=== PATIENT | male | born 1960 | race Caucasian/White ===

== ENCOUNTER → 2017-11-27 | Outpatient (CLI) | payer OTHER ==
[~2017-11-27] MED LIST: ATOR-22 PO; CLTP PO; FISHOIL PO
--- NOTE | 2017-11-27 13:49 | DIAGNOSTIC IMAGING REPORT ---
R INJ MAJOR JOANNAT SHLDR,HIP,KNEE CLINICAL HISTORY: 57 years-old Male presenting with DJD R HIP. COMPARISON: None. PROCEDURE: The risks, benefits, and alternatives to the procedure were discussed with the patient. Written informed consent was obtained. The patient was placed supine on the fluoroscopy table, and a right hip injection was performed under fluoroscopic guidance. The area was prepped and draped in the usual sterile fashion. The skin and soft tissues anesthetized with local 1% lidocaine. The right hip joint was accessed utilizing a 22-gauge needle. Approximately 1 mL of Optiray 300 was injected into the joint space under fluoroscopic guidance to confirm intra-articular positioning. Subsequently, a 10 mL mixture containing 8 mL of 0.5% Bupivacaine and 2 mL of betamethasone was injected into the joint. The procedure was well tolerated without immediate complication. Fluoroscopy dosage (mGy): Not available. Fluoroscopy time: 20 seconds. Number of fluoroscopic spot images: 0. IMPRESSION: Successful injection of the right hip under fluoroscopic guidance. Electronically signed by: Juan Ramon Ga M.D. 11/27/2017 1:48 PM Dictated Date/Time: 11/27/2017 1:48 PM
== END | disposition home or self-care (01) ==
LOC: C.RADBC 12:30
PROVIDERS: ATTEND Orthopaedic Surgery
DX: M16.11 Unilateral primary osteoarthritis, right hip (principal)

== ENCOUNTER 2020-04-24 05:06 | Observation (INO) ==
--- NOTE | 2020-04-05 21:28 | PAT Medication Instructions ---
Medication Instructions Date of Service April 05, 2020 Home Medications Medication Instructions Recorded 3-in-1 Commode #1 ea 04/05/20 Wheeled Walker #1 ea 04/05/20 losartan 50 mg PO QAM warfarin 5 mg PO QAM ASK your prescriber and surgeon warfarin 5 mg PO QAM DO NOT take the morning of surgery losartan 50 mg PO QAM Other Notes If you have any questions please call us at [phone] or [phone] or [phone] or [phone]
--- NOTE | 2020-04-06 10:49 | Anesthesiology Consultation ---
Date of Service April 06, 2020 Assessment & Plan (1) Encounter for pre-operative examination: COVID Status: As of 04/06 assessment, patient denies travel to endemic area, known exposure/sick contacts, or symptoms of COVID19. Patient instructed to follow strict social distancing guidelines, wear a mask in public and avoid travel for 14 days prior to surgery. Preoperative COVID19 testing to be completed prior to surgery. Patient made aware to self-isolate as much as possible between COVID testing and surgery. Chart Review Chart Review: Acceptable Risk for Surgery and Patient seen in Pre Admission Testing Teaching & Discussion Instructed NPO after midnight before surgery, except medications with 15 cc of water. Medication instructions provided according to the PAT guidelines. History Surgery Operation Date: 04/24/20 12:30 Proposed Procedures p Right Total Hip Replacement - Saeed Hogan MD Height/Weight Height: 5 ft 6 in Weight: 119.9 kg Allergies Allergy/AdvReac Type Severity Reaction Status Date / Time codeine Allergy Mild itchy/RASH Verified 04/03/20 14:10 Medications Home Medications Medication Instructions Recorded Confirmed Last Taken losartan 50 mg PO QAM 04/03/20 04/03/20 Unknown warfarin 5 mg PO QAM 04/03/20 04/03/20 Unknown 3-in-1 Commode #1 ea 04/05/20 Unknown Wheeled Walker #1 ea 04/05/20 Unknown Past Medical History Medical History History of prostate cancer Hypertension Morbid obesity Osteoarthritis Thrombophlebitis leg Chronic, on Warfarin. B/L LE. Exercise / Class Metabolic Activity II 4-5 Yardwork/Stairs/Walk up hill (denies CP or SOB with 1 FOS) Past Family History Family History Other No significant family history Past Surgical History Surgical History History of arthroscopy LEFT SHOULDER History of carpal tunnel release RT History of colonoscopy History of discectomy LUMBAR History of prostatectomy History of tooth extraction History of total knee replacement RT/LEFT Hx of vasectomy Nausea and vomiting after administration of anesthetic agent Past Anesthesia History No Hx of Anesthesia Complications (other than PONV) and No Family Hx of Anesthesia Complications POSSIBLE DIFFICULT SPINAL -- PATIENT REPORTS THEY HAD DIFFICULTY DOING A SPINAL TAP WHEN HE HAD MENINGITIS IN 2013. History of PONV No Hx of Motion Sickness and History of PONV (single episode with shoulder scope) Social History Smoking Status: Never smoker Do You Dip or Chew Tobacco: No Hx Alcohol Use: No Hx Substance Use: No Review of Systems Pt denies any recent chest pain, shortness of breath, palpitations, cough, fever or URI. Physical Exam Vital Signs BP: 153/94 P: 73bpm SPO2: 97% RA T: 98.5 F R: 18 Constitutional + obese ENMT Mouth: + dental restorations (front upper incisor capped); no chipped teeth and no loose teeth Thyromental Distance: > or= 3.5 Finger Breadths (3.5) Mallampati Class: I Missing 2 upper incisors Neck + short neck and + facial hair (medium length flores, advised to trim); neck extension not limited Respiratory normal respiratory effort Auscultation: lungs clear to auscultation bilaterally Cardiovascular Rate/Rhythm: regular rate and regular rhythm Heart Sounds: no murmur Extremities: no edema Testing Laboratory Results 04/06/20 11:02 04/06/20 11:02 PT 31.4 Seconds (9.0-12.0) H 04/06/20 11:02 INR 3.2 (0.9-1.1) H 04/06/20 11:02 APTT 42.5 Seconds (21.0-31.0) H 04/06/20 11:02 Blood Type AB Positive 04/06/20 11:02 Antibody Screen NEGATIVE 04/06/20 11:02 Electrocardiogram Date: 04/06/20 Findings: + NSR @ (66bpm) Chest X-Ray Date: 04/06/20 Findings: + NAD
--- NOTE | 2020-04-06 11:34 | XRay Report ---
XR chest Pre-admission PA/Lat CLINICAL HISTORY: pat preoperative COMPARISON STUDY: No previous studies for comparison. FINDINGS: The bones soft tissues and hemidiaphragms are normal. The cardiomediastinal silhouette is n ormal. The lungs are clear. The pulmonary vasculature is normal. IMPRESSION: Negative chest. ACT 112: Negative or not required by law. The above report was generated using voice recognition software. It may contain grammatical, syntax or spelling errors. Electronically signed by: oRb Tapia M.D. 04/06/2020 11:32 AM
[2020-04-06 12:22] LABS: Basophils # (auto) 0.02 K/uL (0-0.2); Basophils % (auto) 0.3 %; Eosinophils # (auto) 0.05 K/uL (0-0.5); Eosinophils % (auto) 0.8 %; Hematocrit (blood only) 46.1 % (42-52); Hemoglobin 15.6 g/dL (14.0-18.0); Immature Granulocytes # (auto) 0.03 K/uL (0.00-0.02); Immature Granulocytes % (auto) 0.5 %; Lymphocytes % (auto) 24.2 %; Mean Corpuscular Hemoglobin 29.2 pg (25-34); Mean Corpuscular Hgb Conc 33.8 g/dL (32-36); Mean Corpuscular Volume 86.2 fL (80-100); Mean Platelet Volume 10.3 fL (7.4-10.4); Monocytes # (auto) 0.43 K/uL (0.11-0.59); Monocytes % (auto) 6.5 %; Neutrophils # (auto) 4.48 K/uL (1.4-6.5); Neutrophils % (auto) 67.7 %; Platelet Count 209 K/uL (130-400); RDW Standard Deviation 43.7 fL (36.4-46.3); Red Blood Count 5.35 M/uL (4.7-6.1); White Blood Count 6.61 K/uL (4.8-10.8)
[2020-04-06 12:29] LABS: BUN Creatinine Ratio 9.7 (10-20); Calcium 9.3 mg/dl (8.5-10.1); Creatinine Clr Calc Pharmacy 109.2 ml/min; Est GFR (Non-African American) 93.2
[2020-04-06 12:37] LABS: INR 3.2 (0.9-1.1); Partial Thromboplastin Ratio 1.5; Partial Thromboplastin Time 42.5 Seconds (21.0-31.0); Prothrombin Time 31.4 Seconds (9.0-12.0)
--- NOTE | 2020-04-06 15:53 | Electrocardiogram Report ---
Test Reason : Blood Pressure : / mmHG Vent. Rate : 066 BPM Atrial Rate : 066 BPM P-R Int : 152 ms QRS Dur : 088 ms QT Int : 414 ms P-R-T Axes : 064 044 042 degrees QTc Int : 434 ms Normal sinus rhythm Normal ECG When compared with ECG of 10-APR-2013 19:18, Minimal criteria for Inferior infarct are no longer Present Confirmed by Musa Rivas ([id number]) on 04/06/2020 3:52:51 PM Referred By: Saeed Hogan Confirmed By:Musa Rivas
[2020-04-24 05:52] LABS: Partial Thromboplastin Ratio 0.9; Prothrombin Time 10.3 Seconds (9.0-12.0)
[2020-04-24] MEDS ORDERED: LR 500ML BOLUS, THEN 15ML/HR IV SCH (06:00)
[2020-04-24] MEDS ORDERED: FAMOTIDINE 20 MG TAB PO SCH (06:00)
[2020-04-24] MEDS ORDERED: CEFAZOLIN 2000MG 2,000 MG/15 ML SYR IV SCH (06:00)
[2020-04-24] MEDS ORDERED: ACETAMINOPHEN 500 MG TAB PO SCH (06:00)
[2020-04-24] MEDS ORDERED: SCOPOLAMINE 1.5 MG TDSY TD SCH (06:00)
[2020-04-24] MEDS ORDERED: TRANEXAMIC ACID 1,000 MG **IV Pre-op IV SCH (06:00)
[2020-04-24] MEDS ORDERED: GABAPENTIN 300 MG CAP PO SCH (06:00)
[2020-04-24] MEDS ORDERED: LR 60ML/HR IV SCH (06:00)
[2020-04-24] MEDS ORDERED: METOCLOPRAMIDE HCL 10 MG TABLET PO SCH (06:00)
[2020-04-24] MEDS ORDERED: MIDAZOLAM HCL 1 MG/ML 2ML VIAL ONE (06:19)
[2020-04-24] MEDS ORDERED: fentaNYL citrate 100 MCG/2 ML VIAL ONE (06:19)
[2020-04-24] MEDS ORDERED: MoRPHine SULFATE PF 1 MG/ML 10 ML AMP/VIAL ONE (06:19)
[2020-04-24] MEDS ORDERED: BUPIVACAINE 0.5 % 5 MG/1 ML PF 10ML VIAL ONE (06:29)
[2020-04-24] MEDS ORDERED: BACITRACIN INJ 50,000 UNIT VIAL ONE (06:36)
[2020-04-24] MEDS ORDERED: EPINEPHrine INJ 1 MG/ML AMP ONE (06:36)
[2020-04-24] MEDS ORDERED: BUPIVACAINE 0.5 % 5 MG/1 ML MPF 30ML VIAL ONE (06:36)
[2020-04-24] MEDS ORDERED: MoRPHine SULFATE 2 MG/ML CARP IV PRN (06:48)
[2020-04-24] MEDS ORDERED: NALOXONE HCL 0.08 MG in SYRINGE 1.8 ML IV PRN (06:48)
[2020-04-24] MEDS ORDERED: NALOXONE HCL 1 MG in SODIUM CHLORIDE 0.9% 1000ML 1,000 ML IV PRN (06:48)
[2020-04-24] MEDS ORDERED: NALOXONE HCL 0.4 MG/1 ML VIAL/CARP IV PRN ×2 (06:48→10:03)
[2020-04-24] MEDS ORDERED: LACTATED RINGER'S 500 ML IV PRN (06:48)
[2020-04-24] MEDS ORDERED: MoRPHine SULFATE PF 1 MG/ML 10 ML AMP/VIAL INT SPINAL ONE (06:48)
[2020-04-24] MEDS ORDERED: ePHEDrine sulfate 50 MG/ML AMP IV PRN (06:48)
[2020-04-24] MEDS ORDERED: DiphenhydrAMINE HCL 50 MG/ML VIAL IV PRN (06:48)
[2020-04-24] MEDS ORDERED: MEPERIDINE HCL 25 MG/ML CARP/VIAL IV PRN (06:48)
[2020-04-24] MEDS ORDERED: ONDANSETRON INJ 2 MG/ML 2 ML VIAL IV PRN (06:48)
--- NOTE | 2020-04-24 06:48 | History & Physical Bridge Note ---
Date of Service April 24, 2020 History & Physical Bridge Note I have examined the patient, reviewed the History & Physical and in the interval since the performance of the History & Physical I have noted the following changes of clinical significance: no changes noted
[2020-04-24] MEDS ORDERED: SODIUM CHLORIDE 0.9% 1000ML 1,000 ML IV SCH (07:00)
[2020-04-24] MEDS ORDERED: NO NARCOTICS OR SEDATIVES SCH (07:00)
[2020-04-24] MEDS ORDERED: PROPOFOL IV EMULSION 10 MG/ML 20 ML VIAL IV ONE (07:06)
[2020-04-24] MEDS ORDERED: ePHEDrine sulfate 50 MG/ML SYR ONE (07:29)
[2020-04-24] MEDS ORDERED: PHENYLEPHRINE 100MCG/ML 5ML SYR ONE (07:29)
--- NOTE | 2020-04-24 08:34 | Post Operative Brief Note ---
PG Immediate Post Op with CF Date of Surgery April 24, 2020 Pre & Post Diagnosis Operation Date: 04/24/20 07:00 Pre-Op Diagnosis: RIGHT HIP DEGENERATIVE JOINT DISEASE Post-Op Diagnosis: RIGHT HIP DEGENERATIVE JOINT DISEASE I identified the patient and participated in the time-out.: Yes Procedure Operation Date: 04/24/20 07:00 Actual Procedures p Right Total Hip Replacement-uncemented(Right) - Saeed Hogan MD Surgeon Saeed Hogan MD Equipment Tester Nic, PAC Estimated Blood Loss 200 Findings Consistent with Post-Op Diagnosis Fluids 1400 cc Specimens Specimen Description: Permanent specimen: A. Right femoral head Drains Alicea Catheter Anesthesia Type Spinal MAC Complications none Disposition Accompanied Patient To Recovery: Yes Disposition: Recovery Room
--- NOTE | 2020-04-24 09:02 | XRay Report ---
XR hip 1V RT w pelvis CLINICAL HISTORY: Postoperative study COMPARISON: None. DISCUSSION: There are postsurgical changes of a total right hip arthroplasty. There is no dislocation . The acetabular and femoral components appear well seated. There are overlying skin mireille. There i s gas in the soft tissues consistent with recent surgery. Osteoarthritic changes are present within t he left hip. IMPRESSION: Postsurgical changes of a total right hip arthroplasty. No evidence of dislocation. ACT 112: Negative or not required by law. Electronically signed by: Kenyon Escamilla M.D. 04/24/2020 9:00 AM
--- NOTE | 2020-04-24 09:23 | Anesthesiology Progress Note ---
Date of Service April 24, 2020 Anesthesia Post Procedure Vital Signs Vital Signs: Temp Pulse Pulse Resp BP Pulse Ox 04/24/20 09:15 36.4 C L 91 H 14 168/83 H 96 04/24/20 09:05 90 12 153/80 H 97 04/24/20 08:55 88 13 147/80 H 96 04/24/20 08:45 88 16 143/77 H 97 04/24/20 08:35 89 15 144/75 H 99 04/24/20 08:28 36.4 C L 103 H 18 132/70 97 04/24/20 05:35 36.8 C 86 20 157/89 H 98 Transfer of Care Handoff Completed per policy Notes Mental Status: alert / awake / arousable and participated in evaluation Patient Amnestic to Procedure: Yes Nausea / Vomiting: adequately controlled Pain: adequately controlled Airway Patency, RR, SpO2: stable & adequate BP & HR: stable & adequate Hydration State: stable & adequate Neuraxial Anesthesia: was administered and sensory block is resolving Anesthetic Complications: no major complications apparent and Pt Satisfied with anesthetic care
[2020-04-24] MEDS ORDERED: bisacodyL 10 MG SUPP PR PRN (10:03)
[2020-04-24] MEDS ORDERED: ALUMINUM/MAGNESIUM SUSP 30 ML UDC PO PRN (10:03)
[2020-04-24] MEDS ORDERED: MAGNESIUM HYDROXIDE SUSP 30 ML UDC PO PRN (10:03)
[2020-04-24] MEDS ORDERED: METOCLOPRAMIDE HCL INJ 5 MG/ML 2 ML VIAL IV PRN (10:03)
[2020-04-24] MEDS ORDERED: TAMSULOSIN HCL 0.4 MG CAP PO PRN (10:03)
[2020-04-24] MEDS: SODIUM CHLORIDE 0.9% 1000ML 1,000 ML IV SCH ×3 (11:26→23:55)
[2020-04-24] MEDS: ASPIRIN 81 MG ECTAB PO SCH ×2 (12:33→21:14)
[2020-04-24] MEDS: KETOROLAC 30 MG/ML VIAL IV SCH ×3 (12:35→23:57)
[2020-04-24] MEDS: DOCUSATE SODIUM 100 MG CAP PO SCH ×2 (12:42→21:13)
[2020-04-24] MEDS: LOSARTAN POTASSIUM 50 MG TAB PO SCH (12:42)
[2020-04-24] MEDS: MULTIVITAMIN TAB PO SCH (12:43)
[2020-04-24] MEDS: ACETAMINOPHEN 500 MG TAB PO SCH ×2 (13:29→21:13)
[2020-04-24] MEDS: CEFAZOLIN 2000MG 2,000 MG/15 ML SYR IV SCH ×2 (13:30→21:14)
[2020-04-24] MEDS ORDERED: TRANEXAMIC ACID / 0.7% NACL 1,000 MG/100 ML BAG IV SCH (15:00)
[2020-04-24] MEDS: CHECK SCOPOLAMINE PATCH PLACEMENT SCH ×2 (15:18→23:55)
[2020-04-24] MEDS ORDERED: WARFARIN SOD 10 MG TAB PO ONE (16:00)
[2020-04-24] MEDS: FERROUS GLUCONATE 324 MG TAB PO SCH (17:04)
[2020-04-24] MEDS: ASCORBIC ACID 500 MG TAB PO SCH (17:04)
--- NOTE | 2020-04-24 17:36 | Operative Report ---
Post Operative Report Pre & Post Diagnosis Operation Date: 04/24/20 07:00 Pre-Op Diagnosis: RIGHT HIP DEGENERATIVE JOINT DISEASE Post-Op Diagnosis: RIGHT HIP DEGENERATIVE JOINT DISEASE I identified the patient and participated in the time-out.: Yes Procedure Operation Date: 04/24/20 07:00 Actual Procedures p Right Total Hip Replacement-uncemented(Right) - Saeed Hogan MD Surgeon Saeed Hogan MD Sustainability Communicator Nic, PAC Estimated Blood Loss 200 Findings Consistent with Post-Op Diagnosis Operative findings revealed advanced right hip DJD. Extensive grade 4 [id number] disease of the femoral head and acetabulum. He had a fairly large anterior acetabular osteophyte. Moderate sized joint effusion. Fluids 1400 cc. Specimens Right femoral head sent for pathology. Drains None. Anesthesia Type Spinal MAC Complications none Disposition Accompanied Patient To Recovery: Yes Disposition: Recovery Room Indications Patient is a 60-year-old gentleman is had a several year history of bile hip pain and discomfort right side quite a bit worse than left. He has been treated by my partner for some time with less successful relief this time is gone on. He became more debilitated by his hip pain. X-rays show advanced right hip DJD. He elected proceed with surgical treatment. Description of Procedure Operative implants consist of: 1. Biomet G7 size 52 mm acetabular shell. 2. [place] hole documentation engineer. 3. 6.55 cancellus acetabular screws 1 of 35 mm length 1 to 25 mm length. 4. Highly cross-linked polyethylene liner with a 52 mm outer diameter, 32 mm inner diameter with a domingo placed inferior and posterior. 4. I Drew Corail size 11 KLA femoral stem. 5. +5/32 mm ceramic articular ball. Patient was taken to the operating room identified and placed on the operating table supine position protectors were properly padded. IV antibiotics were 5 by anesthesia team. Spinal anesthetic been implemented holding area. Alicea catheter was placed in sterile fashion. The patient then placed in the left lateral decubitus position. Axillary roll was placed. Stulberg hip positioner was used for positioning. The right hip and leg were then prepped and draped in usual sterile fashion. A posterior lateral approach to the right hip was then performed through a curvilinear incision centered over the greater trochanter. Sharp dissection was gone through subcutaneous tissue down to the IT band gluteal fascia. The IT b and gluteal fascia were incised longitudinally in line with skin incision. The underlying greater truck bursa was excised. The piriformis and external rotators were tagged and taken off the posterior aspect hip joint capsule. Great care was taken throughout the procedure to protect the sciatic nerve at all times. Posterior capsulotomy was then performed leaving a large flap for later repair. Hip was internally rotated and dislocated. Femoral neck osteotomy cut was made with Final Cut about a centimeter above the lesser trochanter. Femoral head was removed and sent for pathology. The femur was retracted anteriorly. Attention drawn the acetabulum. The acetabular labrum was excised per the pulmonary fat was excised. Sequential reaming the acetabular was then performed begin with a size 45 and progressing up to 51. A 52 mm Biomet G7 acetabular shell was then placed in about 40 degrees lateral opening and 20 degrees of anteversion. It was fixed with two 6.5 cancellus acetabular screws. A trial liner was placed. An anterior osteophyte was removed. Attention drawn the femur. The proximal femur was entered with a cookie-cutter followed by canal finder. I broached beginning with size 8 and progressing up to 11. Got excellent fit at 11. Calcar reamer was used smooth and off the calcar. I then trialed the hip and the +5 articular ball provide full stability in full extension and external rotation and flexion to 9 degrees into rotation over 50 degrees. I did elect to place a domingo inferior and posterior to maximize his stability in flexion. I elect to place these implants. All trial implants were removed. An apex hole eliminator was placed but highly cross-linked polyethylene liner with a domingo placed inferior and posterior was then impacted in position. A Drew KLA size 11 femoral stem was impacted in position. +5/32 mm ceramic articular ball was placed. Hip was located once again found to be stable. Attention drawn toward closing. Nupathe wounds ir rigated cups ounce pulsatile lavage solution. I did inject locally with 60 cc of half percent Marcaine with epinephrine. The posterior capsule and external rotators then repaired through drill holes in the posterior trochanter with #2 Tycron suture. The IT band gluteal fascia then closed in 1 PDS suture in running fashion with subcutaneous tissue then closed with 2 layers the deep layer #1 Vicryl suture and subcutaneous tissues with 2-0 Dexon suture in a buried interrupted fashion. Skin was closed with skin mireille. Leg was then cleaned dried a sterile dressing composed Xeroform, 4 x 4's, sterile ABD pad and foam tape was applied. Patient then transferred to the recovery room in stable condition. Patient tolerated procedure well no complications. I attest to the content of the Intraoperative Record and any orders documented therein. Any exceptions are noted below.
--- NOTE | 2020-04-24 18:00 | Progress Notes ---
DATE: 04/24/2020 SUBJECTIVE: A 60-year-old gentleman postop from a right hip replacement. He is doing well. Does not having any pain yet. No chest pain or shortness of breath. Not feeling dizzy or lightheaded. OBJECTIVE: VITAL SIGNS: Temperature 36.6. Vital signs stable. GENERAL: Shows a pleasant, middle-aged male. He is sitting up in bed, looks quite comfortable. LUNGS: Clear to auscultation. HEART: Regular rate and rhythm. ABDOMEN: Soft, nontender, nondistended. EXTREMITIES: Grossly neurovascularly intact except as follows: Examination of the right hip reveals leg lengths to be equal. Dressing is clean, dry and intact. His thigh is soft and supple. He can dorsiflex and plantarflex his foot appropriately. He is neurologically intact. X-RAYS: X-rays of the right hip from recovery room were reviewed. It shows a right uncemented total hip arthroplasty. Components looked to be in good position. No signs of problems. ASSESSMENT: A 60-year-old gentleman postoperative from right hip replacement, doing well. His hip is located. He is neurologically intact. His pain is controlled. PLAN: 1. DVT prophylaxis including thigh-high TEDs, SCDs, and aspirin along with his pre-operative coumadin which will resume today. 2. PT/OT. Weight bear as tolerated. Right total hip protocol. 3. Pain control, doing well with current pain regimen. 4. IV antibiotics x24 hours. 5. Disposition: Plan to discharge to home with home health once adequately recovered and medically stable. SEN
[2020-04-24] MEDS ORDERED: SENNA 8.6 MG TAB PO SCH (21:00)
[2020-04-25] MEDS ORDERED: HYDROmorphone INJ 0.5 MG/0.5 ML SYR IV PRN (00:48)
[2020-04-25] MEDS ORDERED: ONDANSETRON INJ 2 MG/ML 2 ML VIAL IV PRN (00:48)
[2020-04-25] MEDS ORDERED: TRAMADOL HCL 50 MG TABLET PO PRN (00:48)
[2020-04-25] MEDS ORDERED: DC INTRASPINAL MORPHINE ONE (00:48)
[2020-04-25] MEDS: KETOROLAC 30 MG/ML VIAL IV SCH (05:54)
[2020-04-25] MEDS: ACETAMINOPHEN 500 MG TAB PO SCH ×2 (05:54→14:15)
[2020-04-25 06:14] LABS: Basophils # (auto) 0.01 K/uL (0-0.2); Basophils % (auto) 0.2 %; Eosinophils # (auto) 0.03 K/uL (0-0.5); Eosinophils % (auto) 0.5 %; Hematocrit (blood only) 37.6 % (42-52); Hemoglobin 12.8 g/dL (14.0-18.0); Immature Granulocytes # (auto) 0.03 K/uL (0.00-0.02); Immature Granulocytes % (auto) 0.5 %; Lymphocytes # (auto) 1.25 K/uL (1.2-3.4); Lymphocytes % (auto) 19.8 %; Mean Corpuscular Hemoglobin 29.6 pg (25-34); Mean Platelet Volume 9.5 fL (7.4-10.4); Monocytes # (auto) 0.64 K/uL (0.11-0.59); Monocytes % (auto) 10.1 %; Neutrophils # (auto) 4.35 K/uL (1.4-6.5); Neutrophils % (auto) 68.9 %; Platelet Count 147 K/uL (130-400); RDW Coefficient of Variation 13.8 % (11.5-14.5); RDW Standard Deviation 44.1 fL (36.4-46.3); Red Blood Count 4.32 M/uL (4.7-6.1); White Blood Count 6.31 K/uL (4.8-10.8)
[2020-04-25 06:21] LABS: INR 1.1 (0.9-1.1); Prothrombin Time 11.9 Seconds (9.0-12.0)
[2020-04-25 06:48] LABS: BUN Creatinine Ratio 15.7 (10-20); Calcium 7.7 mg/dl (8.5-10.1); Creatinine Clr Calc Pharmacy 97.7 ml/min; Est GFR (African American) 95.7; Est GFR (Non-African American) 82.6
[2020-04-25] MEDS: LOSARTAN POTASSIUM 50 MG TAB PO SCH (08:20)
[2020-04-25] MEDS: ASCORBIC ACID 500 MG TAB PO SCH (08:21)
[2020-04-25] MEDS: FERROUS GLUCONATE 324 MG TAB PO SCH (08:21)
[2020-04-25] MEDS: DOCUSATE SODIUM 100 MG CAP PO SCH (08:21)
[2020-04-25] MEDS: ASPIRIN 81 MG ECTAB PO SCH (08:21)
[2020-04-25] MEDS: MULTIVITAMIN TAB PO SCH (08:22)
[2020-04-25] MEDS: CHECK SCOPOLAMINE PATCH PLACEMENT SCH (08:22)
[2020-04-25] MEDS ORDERED: WARFARIN SOD 5 MG TAB PO ONE (13:00)
[2020-04-25] MEDS ORDERED: WARFARIN SOD 2 MG TAB PO ONE (13:00)
--- NOTE | 2020-04-25 17:49 | Progress Notes ---
DATE: 04/25/2020 SUBJECTIVE: A 60-year-old gentleman postop day 1 from right hip replacement. He is doing well. Denies any significant pain. Therapy has gone well. Feels like he is getting around safely. Denies any chest pain or shortness of breath. Not feeling dizzy or lightheaded. He decided he wants to go home. OBJECTIVE: VITAL SIGNS: Temperature 36.9. Vital signs stable. GENERAL: Shows a pleasant, middle-aged male. He is sitting up in his bedside chair when I visited him this afternoon. He looks quite well, no apparent distress. EXTREMITIES: Examination of the right hip and leg reveals the dressing to be clean, dry and intact. The leg lengths are equal. His thigh is soft and supple. He is neurologically intact. LABORATORY DATA: Hemoglobin is 12.8. Hematocrit 37.6. Electrolytes are stable. ASSESSMENT: A 60-year-old gentleman postoperative day 1 from a right hip replacement, doing well. Pain is controlled. He is neurologically intact. Hip is located. Therapy went well. He feels like he is ready to go home. PLAN: 1. DVT prophylaxis including thigh-high TEDs, SCDs and he is back on his Coumadin. We will keep him on a baby aspirin as well, but we will dose his Coumadin today and then resume his normal dose tomorrow. 2. PT/OT. Weight bear as tolerated. Right total hip protocol. 3. Pain control, doing well with current pain regimen. 4. Disposition: Plan to discharge to home with some home health later today.
--- NOTE | 2020-04-29 10:14 | Discharge Summary ---
Date of Service April 29, 2020 Admission HPI Per Admitting Provider Documented in the H & P Admission Exam (Per Admitting) Constitutional Documented in the H & P Discharge Data Consultations 04/25/20 08:00 Consult Case Management - Discharge Planning Routine Procedures Performed Operation Date: 04/24/20 07:00 Actual Procedures p Right Total Hip Replacement-uncemented(Right) - Saeed Hogan MD Hospital Course (1) Status post total hip replacement, right: 60 y/o male admitted on 04/24/20 and underwent right total hip replacement. He tolerated the procedure well and there were no complications. He was transferred to the PACU post op and later to the orthopedic floor for further care. He was given ancef for antibiotic prophylaxis. He was given TEDs, SCDs, coumadin, and aspirin for DVT prophylaxis. Hemoglobin, hematocrit, and vital signs were monitored and remained stable. He did not require any blood transfusions. There were no complications. By post op day #1 he was tolerating a regular diet, pain was controlled, and he was participating in physical therapy. On post op day #1 he was discharged home and set up with home health care. He was given printed discharge instructions including new prescriptions for tylenol and tramadol. Continue coumadin. Continue physical therapy, weight bearing as tolerated. Continue DAISY stockings. Follow up approx 2 weeks post op or sooner if he has problems or concerns. Coding Level of Care Code None Diagnoses Status post total hip replacement, right Z96.641
== END 2020-04-25 16:35 | disposition home health service (06) ==
LOC: ASU 05:06 → 3E 05:06
DX: M65.9 Synovitis and tenosynovitis, unspecified; Z11.59 Encounter for screening for other viral diseases; E66.01 Morbid (severe) obesity due to excess calories; Z79.01 Long term (current) use of anticoagulants; Z88.5 Allergy status to narcotic agent; M16.11 Unilateral primary osteoarthritis, right hip; I80.3 Phlebitis and thrombophlebitis of lower extremities, unspecified; Z85.46 Personal history of malignant neoplasm of prostate; I10 Essential (primary) hypertension; M54.5 Low back pain

== ENCOUNTER 2022-11-22 11:12 | Inpatient (IN) ==
[2022-11-22] MEDS ORDERED: NITROGLYCERIN 2% OINTMENT 30GM TUBE EXT STA (11:35)
[2022-11-22 11:42] LABS: Basophils # (auto) 0.04 K/uL (0-0.2); Basophils % (auto) 0.7 %; Eosinophils # (auto) 0.03 K/uL (0-0.50); Eosinophils % (auto) 0.5 %; Hematocrit (blood only) 43.7 % (42.0-52.0); Hemoglobin 15.1 g/dl (14.0-18.0); Immature Granulocytes # (auto) 0.04 K/uL (0.01-0.20); Immature Granulocytes % (auto) 0.7 %; Lymphocytes # (auto) 1.33 K/uL (1.2-3.4); Lymphocytes % (auto) 22.6 %; Mean Corpuscular Hemoglobin 28.9 pg (25.0-34.0); Mean Corpuscular Hgb Conc 34.6 g/dL (32.0-36.0); Mean Corpuscular Volume 83.6 fL (80.0-100.0); Mean Platelet Volume 9.3 fL (9.4-12.4); Monocytes # (auto) 0.38 K/uL (0.11-0.59); Monocytes % (auto) 6.5 %; Neutrophils # (auto) 4.07 K/uL (1.40-6.50); Platelet Count 206 K/uL (130-400); RDW Coefficient of Variation 13.3 % (11.5-14.5); RDW Standard Deviation 40.3 fL (36.4-46.3); Red Blood Count 5.23 M/uL (4.70-6.10); White Blood Count 5.89 K/ul (4.8-10.8)
--- NOTE | 2022-11-22 11:49 | Emergency Department Note ---
Impression & Plan Precordial chest pain, Hypertension, Dizziness ED Provider Note NAME: OUSMANE COLIN AGE: 62 SEX: M : 1960 ARRIVES VIA: Ambulance INFORMANT: [Patient][ems] ED PROVIDER(S): [Lexx Guzmán MD] CHIEF COMPLAINT: Chest pain HISTORY OF PRESENT ILLNESS: The patient is a 62-year-old male who presents to the ER with about 2 days of some upper chest pain that seems to be primarily in the back between the shoulder blades. No shortness of breath although he has felt some dizziness, headache and has noticed some blurred vision. He has felt his heart pumping in his ears. His blood pressure has been quite high. The patient has no diagnosed coronary disease. He does take losartan, 50 mg for blood pressure elevation. He has not recently changed his medications. In route to the hospital, the patient was given 4 baby aspirin and 2 nitroglycerin sprays. He felt improvement with this treatment. PMHx/PSHx: See Below SOCIAL HISTORY: See Below. PHYSICAL EXAM: GENERAL: Patient is in no acute distress. HEENT: No acute trauma, normocephalic atraumatic, mucous membranes moist, no nasal congestion. NECK: No stridor, no adenopathy, no meningismus, trachea is midline. LUNGS: Clear to auscultation bilaterally, no wheeze, no rhonchi, breath sounds equal. HEART: Without murmurs gallops or rubs, regular rate and rhythm. ABDOMEN: Soft, nontender, bowel sounds positive, no peritonitis. EXTREMITIES: No cyanosis or edema, full range of motion of all the joints without pain or difficulty, no signs for acute trauma. NEUROLOGIC: Oriented x 3, no acute motor or sensory deficits, no focal weakness. SKIN: No rash, no jaundice, no diaphoresis. DIFFERENTIAL DIAGNOSIS: Hypertensive urgency, intracranial bleeding, cardiac ischemia, dysrhythmia, electrolyte imbalance, renal failure, SC, among others. EMERGENCY DEPARTMENT COURSE/PROCEDURES: Prior/Outside records reviewed: EMS records. ECG per my interpretation: Indication was chest pain. The ECG shows a normal sinus rhythm with a rate of 71. There is no ST elevation, no PVCs. The QTc is 421. Continuous Cardiac Monitoring per my interpretation: An order was placed for continuous cardiac monitoring. The monitor shows a rate of 82 with normal sinus rhythm. MEDICAL DECISION MAKING: There is no leukocytosis or concerning anemia. There is a normal platelet count. No coagulopathy. No renal failure or significant electrolyte abnormality. No concerning liver enzyme elevation. The patient appeared to be in a euthyroid state. ECG showed a normal sinus rhythm, no obvious ischemia. Cardiac enzyme testing x1 is not consistent with acute cardiac injury. COVID test returned negative. Chest film showed some mild cardiomegaly, there was no mediastinal widening or pneumothorax per my review. Brain CT showed no acute bleed or mass effect. On exam, the patient was hypertensive. Patient was given nitroglycerin paste, 2 inches. His blood pressure did decrease, he felt improved. Patient presents with chest and back pain and a high blood pressure. Certainly, cardiac injury/ischemia is a consideration. Given his presentation and findings, given the high blood pressure, I do think a hospital stay is warranted. I spoke with the patient and case management, the on-call hospitalist was meño lind. DISPOSITION: Patient's findings and presentation warrant a hospital stay. Past Med/Surg History Medical History (Updated 11/22/22 @ 17:14 by Lexx Guzmán MD) History of prostate cancer Hypertension Morbid obesity Osteoarthritis Thrombophlebitis leg Chronic, on Warfarin. B/L LE. Surgical History History of arthroscopy LEFT SHOULDER History of carpal tunnel release RT History of colonoscopy History of discectomy LUMBAR History of prostatectomy History of tooth extraction History of total knee replacement RT/LEFT Hx of vasectomy Nausea and vomiting after administration of anesthetic agent Family History Other No significant family history Social History Smoking Status: Never smoker Second Hand Exposure: Yes; Hx Alcohol Use: No Hx Substance Use: No Preferred Language: Yi Communication Ability: Effective Steel Manager Required: No Beliefs That Will Affect Care: None marital status: Current Living Situation: Spouse Feels Safe at Home: Yes Assistive Devices: Walker Allergies Allergies Allergy/AdvReac Type Severity Reaction Status Date / Time codeine Allergy Intermediate itchy/RASH Verified 11/22/22 14:54 Home Meds Home Medications Medication Instructions Recorded Confirmed losartan 50 mg tablet 50 mg PO QAM 04/03/20 11/22/22 rosuvastatin 10 mg tablet 10 mg PO QA 11/22/22 11/22/22 Previous Rx's Medication Instructions Recorded 3-in-1 Commode #1 ea 04/05/20 Wheeled Walker #1 ea 04/05/20 Results & Data (ED) Vital Signs Vital Signs - 24 hr 11/22/22 11:17 11/22/22 11:36 11/22/22 12:15 Temperature 36.7 C Temperature Source Oral Pulse Rate 82 82 Pulse Rate from SpO2 Sensor Pulse Rhythm Regular Regular Pulse Strength Normal Respiratory Rate 20 20 Respiratory Effort / Characteristics Non-Labored Spontaneous Respiratory Depth Normal Respiratory Pattern Regular Blood Pressure 209/114 H 150/102 H Blood Pressure Mean 145 118 Blood Pressure Position Sitting Pulse Oximetry 93 96 Oxygen Delivery Method Room Air Room Air Sepsis Recent Fever Within 48 Hours No Sepsis New/Unexplained Change in Mental Status No Sepsis Action Taken by Nursing No Action Required 11/22/22 12:15 11/22/22 12:30 11/22/22 12:30 Temperature Temperature Source Pulse Rate 68 70 Pulse Rate from SpO2 Sensor 68 69 Pulse Rhythm Pulse Strength Respiratory Rate 11 L 11 L Respiratory Effort / Characteristics Respiratory Depth Respiratory Pattern Blood Pressure 156/95 H Blood Pressure Mean 115 Blood Pressure Position Pulse Oximetry 96 95 Oxygen Delivery Method Sepsis Recent Fever Within 48 Hours Sepsis New/Unexplained Change in Mental Status Sepsis Action Taken by Nursing 11/22/22 13:14 11/22/22 13:14 11/22/22 13:30 Temperature Temperature Source Pulse Rate 79 Pulse Rate from SpO2 Sensor 78 Pulse Rhythm Pulse Strength Respiratory Rate 17 Respiratory Effort / Characteristics Respiratory Depth Respiratory Pattern Blood Pressure 144/98 H 150/93 H Blood Pressure Mean 113 112 Blood Pressure Position Pulse Oximetry 98 Oxygen Delivery Method Sepsis Recent Fever Within 48 Hours Sepsis New/Unexplained Change in Mental Status Sepsis Action Taken by Nursing 11/22/22 13:30 11/22/22 14:00 11/22/22 14:00 Temperature Temperature Source Pulse Rate 66 61 Pulse Rate from SpO2 Sensor 66 60 Pulse Rhythm Pulse Strength Respiratory Rate 13 17 Respiratory Effort / Characteristics Respiratory Depth Respiratory Pattern Blood Pressure 137/88 Blood Pressure Mean 104 Blood Pressure Position Pulse Oximetry 97 98 Oxygen Delivery Method Sepsis Recent Fever Within 48 Hours Sepsis New/Unexplained Change in Mental Status Sepsis Action Taken by Nursing 11/22/22 14:30 11/22/22 14:30 11/22/22 15:00 Temperature Temperature Source Pulse Rate 65 Pulse Rate from SpO2 Sensor 66 Pulse Rhythm Pulse Strength Respiratory Rate 24 Respiratory Effort / Characteristics Respiratory Depth Respiratory Pattern Blood Pressure 162/93 H 161/99 H Blood Pressure Mean 116 119 Blood Pressure Position Pulse Oximetry 98 Oxygen Delivery Method Sepsis Recent Fever Within 48 Hours Sepsis New/Unexplained Change in Mental Status Sepsis Action Taken by Nursing 11/22/22 15:00 11/22/22 15:30 11/22/22 15:30 Temperature Temperature Source Pulse Rate 68 71 Pulse Rate from SpO2 Sensor 68 70 Pulse Rhythm Pulse Strength Respiratory Rate 18 20 Respiratory Effort / Characteristics Respiratory Depth Respiratory Pattern Blood Pressure 133/93 Blood Pressure Mean 106 Blood Pressure Position Pulse Oximetry 97 98 Oxygen Delivery Method Sepsis Recent Fever Within 48 Hours Sepsis New/Unexplained Change in Mental Status Sepsis Action Taken by Care Home Medications Current Medication List: was personally reviewed by me Laboratory Data Attestation: I reviewed the patient's lab results. 11/22/22 11:25 11/22/22 11:25 Lab Results 11/22/22 11/22/22 11/22/22 Range/Units 11:25 11:25 11:25 WBC 5.89 (4.8-10.8) K/ul RBC 5.23 (4.70-6.10) M/uL Hgb 15.1 (14.0-18.0) g/dl Hct 43.7 (42.0-52.0) % MCV 83.6 (80.0-100.0) fL MCH 28.9 (25.0-34.0) pg MCHC 34.6 (32.0-36.0) g/dL RDW Std Deviation 40.3 (36.4-46.3) fL RDW Coeff of Bill 13.3 (11.5-14.5) % Plt Count 206 (130-400) K/uL MPV 9.3 L (9.4-12.4) fL Immature Gran % (Auto) 0.7 % Neut % (Auto) 69.0 % Lymph % (Auto) 22.6 % [place] % (Auto) 6.5 % Eos % (Auto) 0.5 % Baso % (Auto) 0.7 % Neut # (Auto) 4.07 (1.40-6.50) K/uL Lymph # (Auto) 1.33 (1.2-3.4) K/uL [place] # (Auto) 0.38 (0.11-0.59) K/uL Eos # (Auto) 0.03 (0-0.50) K/uL Baso # (Auto) 0.04 (0-0.2) K/uL Immature Gran # (Auto) 0.04 (0.01-0.20) K/uL PT 10.5 (9.0-12.0) Seconds INR 1.0 (0.9-1.1) APTT 23.0 (21.0-31.0) Seconds PTT Ratio 0.8 Sodium 138 (136-145) mmol/L Potassium 4.0 (3.5-5.1) mmol/L Chloride 105 (98-107) mmol/L Carbon Dioxide 26 (21-32) mmol/L Anion Gap 7 (3-11) BUN 9 (6-23) mg/dl Creatinine 0.75 (0.6-1.4) mg/dl Est Cr Clr Drug Dosing 127.6 ml/min Est GFR ( Amer) 115.6 ml/min Est GFR (Non-Af Amer) 99.7 ml/min BUN/Creatinine Ratio 12.0 (10-20) Glucose 122 H (70-99(Fasting)) mg/dl Calcium 10.1 (8.5-10.1) mg/dl Magnesium Cancelled Total Bilirubin 0.9 (0.2-1.0) mg/dl AST 16 (13-39) U/L ALT 16 (7-52) U/L Alkaline Phosphatase 87 (34-104) U/L Troponin I High Sens 6.8 (0-20) pg/ml Total Protein 6.8 (6.0-8.3) gm/dl Albumin 3.8 (3.4-5.0) gm/dl Globulin 3.0 (2.5-4.0) gm/dl Albumin/Globulin Ratio 1.3 (0.9-2) TSH (0.300-4.500) uIu/ml SARS-CoV-2, RNA, NAAT (NEGATIVE) 11/22/22 11/22/22 11/22/22 Range/Units 11:25 11:52 14:24 WBC (4.8-10.8) K/ul RBC (4.70-6.10) M/uL Hgb (14.0-18.0) g/dl Hct (42.0-52.0) % MCV (80.0-100.0) fL MCH (25.0-34.0) pg MCHC (32.0-36.0) g/dL RDW Std Deviation (36.4-46.3) fL RDW Coeff of Bill (11.5-14.5) % Plt Count (130-400) K/uL MPV (9.4-12.4) fL Immature Gran % (Auto) % Neut % (Auto) % Lymph % (Auto) % [place] % (Auto) % Eos % (Auto) % Baso % (Auto) % Neut # (Auto) (1.40-6.50) K/uL Lymph # (Auto) (1.2-3.4) K/uL [place] # (Auto) (0.11-0.59) K/uL Eos # (Auto) (0-0.50) K/uL Baso # (Auto) (0-0.2) K/uL Immature Gran # (Auto) (0.01-0.20) K/uL PT (9.0-12.0) Seconds INR (0.9-1.1) APTT (21.0-31.0) Seconds PTT Ratio Sodium (136-145) mmol/L Potassium (3.5-5.1) mmol/L Chloride (98-107) mmol/L Carbon Dioxide (21-32) mmol/L Anion Gap (3-11) BUN (6-23) mg/dl Creatinine (0.6-1.4) mg/dl Est Cr Clr Drug Dosing ml/min Est GFR ( Amer) ml/min Est GFR (Non-Af Amer) ml/min BUN/Creatinine Ratio (10-20) Glucose (70-99(Fasting)) mg/dl Calcium (8.5-10.1) mg/dl Magnesium 1.7 Total Bilirubin (0.2-1.0) mg/dl AST (13-39) U/L ALT (7-52) U/L Alkaline Phosphatase (34-104) U/L Troponin I High Sens (0-20) pg/ml Total Protein (6.0-8.3) gm/dl Albumin (3.4-5.0) gm/dl Globulin (2.5-4.0) gm/dl Albumin/Globulin Ratio (0.9-2) TSH 1.327 (0.300-4.500) uIu/ml SARS-CoV-2, RNA, NAAT NEGATIVE (NEGATIVE) Administered Medications Discontinued Medications Ioversol (Optiray 320 500ml) 101 ml IV ONCE ONE Stop: 11/22/22 16:57 Last Admin: 11/22/22 16:58 Dose: 101 ml Documented By: JAVON Nitroglycerin (Nitroglycerin 2% Ointment 30gm Tube) 2 inch EXT NOW STA Stop: 11/22/22 11:36 Last Admin: 11/22/22 11:43 Dose: 2 inch Documented By: MICHELLE Imaging Data Radiologist's Impression: Chest X-Ray 11/22/22 11:31 XR chest 1V portable HISTORY: Chest pain, nonspecific COMPARISON: Chest 04/06/2020. FINDINGS: No pneumothorax. No pleural effusions. The cardiac silhouette is top normal in size. There are low lung findings with a few bibasilar linear densities suggestive of subsegmental atelectasis. Otherwise, the lungs are clear. No evidence for pulmonary edema. IMPRESSION: Low lung volumes with bibasilar linear densities suggestive of subsegmental atelectasis. ACT 112: Negative or not required by law. Electronically signed by: Rivas Paul M.D. 11/22/2022 12:[address] 11/22/22 11:[address] DOSE: 615.90 mGycm HISTORY: Blurred vision1. Headache. TECHNIQUE: Multiaxial CT images of the head were performed without the use of intravenous contrast. Automated exposure control was utilized for this study. A dose lowering technique was utilized adhering to the principles of ALARA. Comparison: Head CT 04/10/2013. Findings: The paranasal sinuses and mastoid air cells are clear. The calvarium and skull base are intact. The ventricles and sulci are within normal limits. There is no mass, hematoma, midline shift, or acute infarct. The orbits are unremarkable. Impression: No acute intracranial abnormality. ACT 112: Negative or not required by law. Electronically signed by: Rivas Paul M.D. 11/22/2022 1:16 PM Discharge Plan Visit Data Chief Complaint: Chest Pain ED Provider: Lexx Guzmán Discharge Problem: Precordial chest pain, Hypertension, Dizziness Patient Disposition: Admitted As Inpatient Condition: Fair Forms Stand Alone Forms: [employer] [facility] [employer] Prescriptions Prescriptions: No Action (DME) Wheeled Walker Misc See Rx Instructions .ROUTE .MEDSUPPLY Qty: 1 0RF Rx Instructions: As directed (DME) 3-in-1 Commode Misc See Rx Instructions .ROUTE .MEDSUPPLY Qty: 1 0RF Rx Instructions: As directed losartan 50 mg Tablet 50 mg PO QAM rosuvastatin 10 mg tablet 10 mg PO QAM Referrals Referrals: Rob Naranjo MD [Primary Care Provider] -
[2022-11-22 12:00] LABS: Albumin Globulin Ratio 1.3 (0.9-2); Albumin Level 3.8 gm/dl (3.4-5.0); Bilirubin,Total 0.9 mg/dl (0.2-1.0); Calcium 10.1 mg/dl (8.5-10.1); Creatinine Clr Calc Pharmacy 127.6 ml/min; Est GFR (African American) 115.6 ml/min; Est GFR (Non-African American) 99.7 ml/min; Total Protein 6.8 gm/dl (6.0-8.3)
--- NOTE | 2022-11-22 12:04 | XRay Report ---
XR chest 1V portable HISTORY: Chest pain, nonspecific COMPARISON: Chest 04/06/2020. FINDINGS: No pneumothorax. No pleural effusions. The cardiac silhouette is top normal in size. There are low lung findings with a few bibasilar linear densities suggestive of subsegmental atelectasis. O therwise, the lungs are clear. No evidence for pulmonary edema. IMPRESSION: Low lung volumes with bibasilar linear densities suggestive of subsegmental atelectasis. ACT 112: Negative or not required by law. Electronically signed by: Rivas Paul M.D. 11/22/2022 12:03 PM
[2022-11-22 12:05] LABS: Troponin I High Sensitivity 6.8 pg/ml (0-20)
[2022-11-22 12:08] LABS: Partial Thromboplastin Ratio 0.8; Prothrombin Time 10.5 Seconds (9.0-12.0)
--- NOTE | 2022-11-22 13:18 | CT Scan Report ---
HEAD CT NONCONTRAST CT DOSE: 615.90 mGycm HISTORY: Blurred vision1. Headache. TECHNIQUE: Multiaxial CT images of the head were performed without the use of intravenous contrast. A utomated exposure control was utilized for this study. A dose lowering technique was utilized adheri ng to the principles of ALARA. Comparison: Head CT 04/10/2013. Findings: The paranasal sinuses and mastoid air cells are clear. The calvarium and skull base are int act. The ventricles and sulci are within normal limits. There is no mass, hematoma, midline shift, or acute infarct. The orbits are unremarkable. Impression: No acute intracranial abnormality. ACT 112: Negative or not required by law. Electronically signed by: Rivas Paul M.D. 11/22/2022 1:16 PM
[2022-11-22] MEDS ORDERED: OPTIRAY 320 500ml IV ONE (16:56)
--- NOTE | 2022-11-22 17:14 | CT Scan Report ---
CHEST CTA for AORTIC DISSECTION CT DOSE: 1414.04 mGycm HISTORY: chest pain, radiating to the back TECHNIQUE: Multiaxial CT images of the chest were performed both before and after the intravenous adm inistration of contrast to evaluate the aorta. Maximal intensity projection images were also obtained . A dose lowering technique was utilized adhering to the principles of ALARA. COMPARISON STUDY: None. FINDINGS: Noncontrast imaging through the chest shows no evidence for an intramural hematoma within t he thoracic aorta. Mild calcified plaque within the coronary arteries and aortic valve. Normal calibe r thoracic aorta with no evidence for a dissection. Nonocclusive filling defect seen within the right lower lobe segmental/subsegmental pulmonary arteries best in image 142. This is consistent with a pu lmonary embolus. Limited views the upper abdomen demonstrate normal liver, spleen, and adrenal glands . Normal esophagus. No mediastinal or hilar lymphadenopathy. No pleural or pericardial effusions. The thyroid gland enhances normally. No acute fractures within the chest. No pneumothorax. The central a irways are patent. No focal lung consolidations to suggest a pneumonia. IMPRESSION: 1. No evidence for an aortic dissection. 2. Nonocclusive right lower lobe segmental/subsegmental pulmonary emboli. 3. No focal lung consolidations. ACT 112: Negative or not required by law. Electronically signed by: Rivas Paul M.D. 11/22/2022 5:11 PM
--- NOTE | 2022-11-22 17:28 | History & Physical Report ---
Date of Service November 22, 2022 Assessment & Plan (1) Hypertensive urgency: (2) Chest pain: (3) Acute pulmonary embolism: Plan: Mr. Saeed Lal is a 62-year-old male with history of hypertension, dyslipidemia, rhinitis, Phlebitis of the right lower extremity, venous insufficiency, prostate cancer, presenting with chest tightness radiating to the back, dizziness this morning. HYPERTENSIVE URGENCY CHEST PAIN Troponin x1 negative EKG no signs of acute ischemia Troponin x2 Echocardiogram Repeat EKG in the morning Management of acute pulmonary embolism per below Remove Nitropaste, start amlodipine 5 mg p.o. daily Continue losartan daily As needed hydralazine ACUTE PULMONARY EMBOLISM, BILATERAL CT angiogram chest initially ordered to rule out aortic dissection given chest tightness radiating to the back CT angiogram chest: 1. No evidence for an aortic dissection. 2. Nonocclusive right lower lobe segmental/subsegmental pulmonary emboli. 3. No focal lung consolidations. Discussed with telephone operator receptionist Dr. Shell, CT angiogram reviewed, left pulmonary embolism also noted Recommend full anticoagulation, discussed with patient, no previous history of major bleeding, heparin drip started Echocardiogram ordered DYSLIPIDEMIA Continue Crestor Disposition Anticipate discharge to home when medically stable plan of care discussed with patient in detail and at length all questions answered He is understanding, agreeable, comfortable with the plan of care History of Present Illness Primary Care Provider: Rob Naranjo MD Mr. Saeed Lal is a 62-year-old male with history of hypertension, dyslipidemia, rhinitis, Phlebitis of the right lower extremity, venous insufficiency, prostate cancer, presenting with chest tightness radiating to the back, dizziness this morning. Patient reports that his blood pressure is usually under good control based on home monitoring. For the past week, patient has had worsening of nasal drainage, for which she has been using previously prescribed nasal decongestants. For the past 2 days, patient has had elevated blood pressure measurements at home, up to systolic 180s. This morning, patient took his usual losartan 20 mg p.o., but subsequent blood pressure readings was up to systolic 190s, even up to 200s. He was having chest tightness, radiating to the back-in between his shoulder blades, dizziness, blurring of vision, throbbing headache, and buzzing in his ears. Patient called 911, was given 4 aspirin doses and sublingual nitro which relieved the patient's chest tightness. Upon arrival to the ER, the patient's blood pressure was 209/114. EKG: No signs of acute ischemia or infarct. Troponin negative Chest x-ray: Subsegmental atelectasis Patient was placed on Nitropaste, blood pressure subsequently improved to systolic 160s. On exam, patient seen sitting up in bed, comfortable, not in distress, very pleasant. States chest tightness radiating to the back has resolved. Denies active shortness of breath, nausea or vomiting, palpitations. He reports mild frontal headache. No fevers or chills, neck pain, abdominal pain, nausea or vomiting, problems with urination or bowel movement. No other symptoms. Allergies Allergy/AdvReac Type Severity Reaction Status Date / Time codeine Allergy Intermediate itchy/RASH Verified 11/22/22 14:54 Home Medications Medication Instructions Recorded Confirmed Type losartan 50 mg tablet 50 mg PO QAM 04/03/20 11/22/22 History 3-in-1 Commode #1 ea 04/05/20 10/07/22 Rx Wheeled Walker #1 ea 04/05/20 10/07/22 Rx rosuvastatin 10 mg tablet 10 mg PO QAM 11/22/22 11/22/22 History Past Med/Surg History Medical History (Updated 11/22/22 @ 18:14 by Butch Ray MD) History of prostate cancer Hypertension Morbid obesity Osteoarthritis Thrombophlebitis leg Chronic, on Warfarin. B/L LE. Surgical History History of arthroscopy LEFT SHOULDER History of carpal tunnel release RT History of colonoscopy History of discectomy LUMBAR History of prostatectomy History of tooth extraction History of total knee replacement RT/LEFT Hx of vasectomy Nausea and vomiting after administration of anesthetic agent Family History Other No significant family history Social History Smoking Status: Never smoker Second Hand Exposure: Yes; Hx Alcohol Use: No Hx Substance Use: No Preferred Language: Italian Communication Ability: Effective Manager Radio Required: No Beliefs That Will Affect Care: None marital status: Current Living Situation: Spouse Feels Safe at Home: Yes Assistive Devices: Walker Review of Systems Review of Systems: all noted and negative except for above Physical Exam Physical Exam: General- oriented x 3, not in distress, speaks in sentences with no effort or accessory muscle use Head- atraumatic Eyes- PERRL, EOMI, anicteric ENT- Positive mild frontal sinus tenderness, maxillary sinus tenderness Positive dry nasal mucosa, with some erythema and excoriation oropharynx clear Neck- supple, no JVD, no adenopathy, no thyromegaly; carotids +2/2, no bruits appreciated Lungs- clear to auscultation bilaterally, no rales/wheezes Heart- normal rate, regular rhythm; no murmur, no gallop, no rub appreciated No tenderness on the chest wall Abdomen- normal bowel sounds, nondistended, soft, nontender, no masses or hepatosplenomegaly Extremities-trace pretibial edema, no calf tenderness; peripheral pulses intact Neuro- alert, oriented x 3; CN 2-12 grossly intact; motor 5/[address]ally;sensation 100% on all extremities; no other gross focal neurologic deficits Skin- warm & dry Results & Data Results & Data ([facility]) Vital Signs (Past 12 Hours) Vital Signs Temp Pulse Resp BP Pulse Ox O2 Del Method 11/22/22 17:00 74 21 97 11/22/22 17:00 158/82 H 11/22/22 16:00 73 15 97 11/22/22 16:00 167/91 H 11/22/22 15:30 71 20 98 11/22/22 15:30 133/93 11/22/22 15:00 68 18 97 11/22/22 15:00 161/99 H 11/22/22 14:30 65 24 98 11/22/22 14:30 162/93 H 11/22/22 14:00 61 17 98 11/22/22 14:00 137/88 11/22/22 13:30 66 13 97 11/22/22 13:30 150/93 H 11/22/22 13:14 79 17 98 11/22/22 13:14 144/98 H 11/22/22 12:30 70 11 L 95 11/22/22 12:30 156/95 H 11/22/22 12:15 68 11 L 96 11/22/22 12:15 150/102 H 11/22/22 11:36 82 20 96 Room Air 11/22/22 11:17 36.7 C 82 20 209/114 H 93 Room Air Code Status & VTE Plan VTE Prophylaxis Plan VTE Prophylaxis will be ordered: Yes
[2022-11-22] MEDS ORDERED: ONDANSETRON INJ 2 MG/ML 2 ML VIAL IV PRN (19:45)
[2022-11-22] MEDS ORDERED: Heparin IV Adult Wt-Based Standard WITH Bolus Protocol IV STA (19:45)
[2022-11-22] MEDS ORDERED: HEPARIN SOD (PORCINE) 1000 UNIT/ML IV ONE (19:45)
[2022-11-22] MEDS ORDERED: ACETAMINOPHEN 325 MG TAB PO PRN (19:45)
[2022-11-22] MEDS ORDERED: HEPARIN SODIUM/DEXTROSE 25,000 UNITS/500 ML BAG IV SCH (19:45)
[2022-11-22] MEDS ORDERED: amLODIPine BESYLATE 5 MG TAB PO ONE (19:45)
[2022-11-22] MEDS: AMOXICILLIN/CLAVULANATE 875 MG TAB PO SCH (21:17)
[2022-11-23] MEDS: hydrALAZINE HCL 20 MG/ML VIAL IV PRN (03:32)
[2022-11-23 03:56] LABS: Partial Thromboplastin Ratio 2.4
[2022-11-23 04:16] LABS: Partial Thromboplastin Time 65.2 Seconds (21.0-31.0)
--- NOTE | 2022-11-23 08:10 | Pulmonary Consultation ---
Date of Consultation November 23, 2022 Assessment & Plan (1) Acute pulmonary embolism: (2) Chest pain: (3) Acute DVT (deep venous thrombosis): (4) Morbid obesity: Plan CT chest 11/22/2022 personally reviewed: Mild elevation of the right hemidiaphragm Pulmonary emboli appreciated in the right lower lobe, no right heart strain No mediastinal lymphadenopathy -- Acute pulmonary embolism Unprovoked Patient's BMI is 42 which does make him at risk Would recommend lifetime anticoagulation Give at least 6 months of anticoagulation and then reassess. Recommend hypercoagulable work-up to be done as an outpatient and follow-up with field technical specialist SARS COVID-19 NAAT negative -- Morbid obesity with probable CARMELO Recommend outpatient polysomnography Plan: Continue with anticoagulation Can transition to p.o. DOACs in the next 24-48 hours Recommend Doppler bilateral lower extremity Case was discussed with Dr. Ray No further recommendation from pulmonary perspective. We will sign off Please call directly with any questions Please note the above document was generated using voice recognition software. It may contain grammatical, syntax or spelling errors.Any formal questions or concerns about the content, text or information contained within the body of this dictation should be directly addressed to the provider for clarification. History of Present Illness Attending Physician: Butch Ray MD History of Present Illness 62-year-old male presented to the hospital with chest tightness and dizziness Past medical history: Hypertension, dyslipidemia, venous insufficiency, prostate cancer Patient had a CTA chest done which showed pulmonary embolism Pulmonary were consulted for the same Time of examination patient was saturating 98% on room air in no respiratory distress. Denied any chest pain right now, no shortness of breath No headache, no blurry vision No coughing. Denies any hemoptysis No pleuritic chest pain No headache, no dizziness Denies any recent travel history. No recent surgery No family history of clots. Social history: Lifetime non-smoker. Works as a maintenance. Has a cat and a dog at home. No birds or poultry nearby Allergies Allergy/AdvReac Type Severity Reaction Status Date / Time codeine Allergy Intermediate itchy/RASH Verified 11/22/22 14:54 Home Medications Medication Instructions Recorded Confirmed Type losartan 50 mg tablet 50 mg PO QAM 04/03/20 11/22/22 History 3-in-1 Commode #1 ea 04/05/20 10/07/22 Rx Wheeled Walker #1 ea 04/05/20 10/07/22 Rx rosuvastatin 10 mg tablet 10 mg PO QAM 11/22/22 11/22/22 History Patient History Medical History (Updated 11/23/22 @ 11:10 by Sriram Shell MD, [facility]) History of prostate cancer Hypertension Morbid obesity Osteoarthritis Thrombophlebitis leg Chronic, on Warfarin. B/L LE. Surgical History History of arthroscopy LEFT SHOULDER History of carpal tunnel release RT History of colonoscopy History of discectomy LUMBAR History of prostatectomy History of tooth extraction History of total knee replacement RT/LEFT Hx of vasectomy Nausea and vomiting after administration of anesthetic agent Family History Other No significant family history Social History Smoking Status: Never smoker Second Hand Exposure: Yes; Hx Alcohol Use: No Hx Substance Use: No Preferred Language: Croatian Communication Ability: Effective Flap Presser Required: No Beliefs That Will Affect Care: None marital status: Current Living Situation: Spouse Other Information That Helps Us Care for You: No Feels Safe at Home: Yes Safety Concerns: Feels Safe At This Time Assistive Devices: Glasses Review of Systems Review of Systems: All systems reviewed & are unremarkable except as noted in HPI & below Physical Exam Physical Exam: Constitutional: No acute distress HEENT: EOMI, PERRLA Respiratory system: Decreased air entry bilaterally, no wheeze, no rhonchi, mild crackles bilateral lower lobes CVS: S1-S2 positive, no murmurs or gallops Abdomen: Soft, nontender, nondistended, positive bowel sounds x4, obese Extremities: +2 pulses bilaterally radialis/ dorsalis pedis, no cyanosis, +2 pitting edema right lower extremity Neuro: Awake alert oriented x3 Psych: Normal mood and affect G/U: No [place] Skin: no rashes, warm and dry Lymphatic: no cervical or axillary lymphadenopathy Results & Data Results & Data ([facility]) Vital Signs (Past 12 Hours) Vital Signs Temp Pulse Pulse Resp BP Pulse Ox O2 Del Method 11/23/22 07:25 37.0 C 92 H 18 160/80 H 95 Room Air 11/23/22 03:22 36.8 C 95 H 20 170/106 H 95 Room Air 11/23/22 00:48 87 18 168/98 H 95 Room Air 11/22/22 23:31 36.8 C 69 18 178/99 H 94 Room Air 11/22/22 22:30 67 Laboratory Results 11/22/22 11:25 11/22/22 11:25 PG Care Time/CCT Total # of Minutes Spent Total Time Spent with Patient: Total time spent is greater than 50% in coordination of care (as documented) at patient's floor/unit and/or counseling patient: Coding Level of Care Code 61370 INT INP/OBS CARE 3/75MIN Diagnoses Acute pulmonary embolism I26.99 Chest pain R07.9 Acute DVT (deep venous thrombosis) I82.409 Morbid obesity E66.01
[2022-11-23] MEDS: ASPIRIN 81 MG ECTAB PO SCH (08:16)
[2022-11-23] MEDS: AMOXICILLIN/CLAVULANATE 875 MG TAB PO SCH ×2 (08:16→17:35)
[2022-11-23] MEDS ORDERED: LOSARTAN POTASSIUM 50 MG TAB PO SCH (09:00)
[2022-11-23] MEDS ORDERED: LOSARTAN POTASSIUM 25 MG TAB PO SCH (09:00)
[2022-11-23] MEDS: amLODIPine BESYLATE 5 MG TAB PO SCH (09:09)
--- NOTE | 2022-11-23 10:27 | Ultrasound Report ---
BILATERAL LOWER EXTREMITY VENOUS DOPPLER CLINICAL HISTORY: Pulmonary emboli. Evaluate for deep venous thrombus. COMPARISON STUDY: No previous studies for comparison. TECHNIQUE: Sonography of the deep venous system of the bilateral lower extremities was performed. Co mpression and augmentation were evaluated. FINDINGS: There is no deep venous thrombus within the right common femoral or superficial femoral ve ins. Note is made of deep venous thrombus within the right popliteal vein. There is an additional foc us of venous thrombus within a smaller vein draining into the right popliteal vein. There is no deep venous thrombus within the left lower extremity. IMPRESSION: Deep venous thrombus within the right popliteal vein and an adjacent smaller draining vei n. ACT 112: Negative or not required by law. Electronically signed by: Kirby Yañez M.D. 11/23/2022 10:25 AM
[2022-11-23] MEDS: APIXABAN 5 MG TABLET PO SCH ×2 (10:41→20:02)
--- NOTE | 2022-11-23 13:40 | Cardiology Consultation ---
Date of Consultation November 23, 2022 Assessment & Plan (1) Acute pulmonary embolism: (2) Hypertensive urgency: (3) Precordial chest pain: Plan 62-year-old male presents with marked hypertension, DVT, pulmonary embolus. No evidence of cardiac injury or ischemia. LV systolic function is normal no evidence of right ventricular strain Recommendations: Treat pulmonary embolus and hypertension. Patient will require at least 2 drug management for hypertension. Consider increasing losartan further addition of low-dose diuretic to current therapy Call with any question History of Present Illness Reason for Consultation: Chest pain, pulmonary embolus, hypertension with hypertensive urgency Requesting Physician: Dr. Ray Attending Physician: Butch Ray MD History of Present Illness Patient is a 62-year-old male with longstanding hypertension, hyperlipidemia. No recent medical evaluations. Presents this admission noting several days history of worsening symptoms of dyspnea and chest pressure and pain. Found blood pressure significantly elevated and presented to the ER with marked hypertensive heart on arrival Recent history notable for phlebitis of the right leg Imaging studies notable for DVT on the right leg and evidence of pulmonary embolus bilaterally Patient currently comfortable. Cardiac evaluation since admission included negative cardiac enzymes x3 and normal echocardiogram EKG without acute ischemic changes Blood pressure slowly improving Allergies Allergy/AdvReac Type Severity Reaction Status Date / Time codeine Allergy Intermediate itchy/RASH Verified 11/22/22 14:54 Home Medications Medication Instructions Recorded Confirmed Type losartan 50 mg tablet 50 mg PO QAM 04/03/20 11/22/22 History 3-in-1 Commode #1 ea 04/05/20 10/07/22 Rx Wheeled Walker #1 ea 04/05/20 10/07/22 Rx rosuvastatin 10 mg tablet 10 mg PO QAM 11/22/22 11/22/22 History Patient History Medical History History of prostate cancer Hypertension Morbid obesity Osteoarthritis Thrombophlebitis leg Chronic, on Warfarin. B/L LE. Surgical History History of arthroscopy LEFT SHOULDER History of carpal tunnel release RT History of colonoscopy History of discectomy LUMBAR History of prostatectomy History of tooth extraction History of total knee replacement RT/LEFT Hx of vasectomy Nausea and vomiting after administration of anesthetic agent Family History Other No significant family history Social History Smoking Status: Never smoker Second Hand Exposure: Yes; Hx Alcohol Use: No Hx Substance Use: No Preferred Language: Kuwaiti Communication Ability: Effective Merry Go Round Attendant Required: No Beliefs That Will Affect Care: None marital status: Current Living Situation: Spouse Other Information That Helps Us Care for You: No Feels Safe at Home: Yes Safety Concerns: Feels Safe At This Time Assistive Devices: Glasses Review of Systems Review of Systems: All systems reviewed & are unremarkable except as noted in HPI & below Physical Exam Constitutional: + obese; no acute distress Eyes: PERRL, conjunctivae normal, anicteric sclerae ENMT: external ear and nose normal, oropharynx normal Neck: trachea midline, no thyromegaly Respiratory: normal respiratory effort, lungs clear to auscultation Cardiovascular: Rate/Rhythm: regular rate and regular rhythm Heart Sounds: normal S1 and normal S2; no murmur and no cardiac rub Vessels: normal carotid upstroke and radial pulses present; no JVD Extremities: + edema (Mild right leg) Gastrointestinal (Abdomen): normal bowel sounds, soft, nontender, no hepatosplenomegaly Musculoskeletal: no cyanosis or clubbing, extremities motor strength 5/5 Results & Data ([facility]) Vital Signs (Past 12 Hours) Vital Signs Temp Pulse Resp BP Pulse Ox O2 Del Method 11/23/22 11:58 36.6 C 90 19 146/94 H 94 Room Air 11/23/22 07:25 37.0 C 92 H 18 160/80 H 95 Room Air 11/23/22 03:22 36.8 C 95 H 20 170/106 H 95 Room Air Laboratory Results Laboratory Results - last 24 hr 11/22/22 11/22/22 11/22/22 11:52 14:24 20:05 APTT PTT Ratio Magnesium 1.7 Troponin I High Sens 8.7 B-Natriuretic Peptide SARS-CoV-2, RNA, NAAT NEGATIVE 11/23/22 11/23/22 11/23/22 03:17 03:17 08:26 APTT 65.2 H* PTT Ratio 2.4 Magnesium Troponin I High Sens 7.9 B-Natriuretic Peptide 35 SARS-CoV-2, RNA, NAAT Medications Administered Current Medications Acetaminophen (Acetaminophen 325 Mg Tab) 650 mg PO Q4H PRN PRN Reason: Pain or Fever Stop: 12/22/22 19:44 Last Admin: 11/23/22 04:49 Dose: 650 mg Amlodipine Besylate (Amlodipine Besylate 5 Mg Tab) 5 mg PO [facility] Stop: 12/23/22 08:59 Last Admin: 11/23/22 09:09 Dose: 5 mg Amoxicillin/Clavulanate Potassium (Amoxicillin/Clavulanate 875 Mg Tab) [facility] [place] Stop: 12/02/22 19:44 Last Admin: 11/23/22 08:16 Dose: 1 tab Apixaban (Apixaban 5 Mg Tablet) 10 mg PO BID [facility] Stop: 11/29/22 21:01 Last Admin: 11/23/22 10:41 Dose: 10 mg Aspirin (Aspirin 81 Mg Ectab) 81 mg PO [facility] Stop: 12/23/22 08:59 Last Admin: 11/23/22 08:16 Dose: 81 mg Hydralazine HCl (Hydralazine Hcl 20 Mg/Ml Vial) 5 mg IV Q6H PRN PRN Reason: systolic bp > 160 Stop: 12/22/22 19:44 Last Admin: 11/23/22 03:32 Dose: 5 mg Losartan Potassium (Losartan Potassium 25 Mg Tab) 75 mg PO [facility] Stop: 12/23/22 08:59 Last Admin: 11/23/22 09:08 Dose: 75 mg Ondansetron HCl (Ondansetron Inj 2 Mg/Ml 2 Ml Vial) 4 mg IV Q6H PRN PRN Reason: Nausea Stop: 12/22/22 19:44
--- NOTE | 2022-11-23 14:13 | Hospitalist Progress Note ---
Date of Service November 23, 2022 Assessment & Plan (1) Hypertensive urgency: (2) Chest pain: (3) Acute pulmonary embolism: Plan: Mr. Saeed Lal is a 62-year-old male with history of hypertension, dyslipidemia, rhinitis, Phlebitis of the right lower extremity, venous insufficiency, prostate cancer, presenting with chest tightness radiating to the back, dizziness this morning. HYPERTENSIVE URGENCY CHEST PAIN Troponin x1 negative EKG no signs of acute ischemia Troponin x2 Echocardiogram Repeat EKG in the morning Management of acute pulmonary embolism per below Remove Nitropaste, start amlodipine 5 mg p.o. daily Continue losartan daily As needed hydralazine 11/23 Clinically improved Chest pain-free Blood pressure improving On room air Troponins negative x3 EKG no signs of acute ischemia or infarct No signs of right ventricular strain on echocardiogram No left ventricular wall motion abnormalities Transition from heparin drip to Eliquis 10 mg p.o. twice daily x7 days, then 5 mg p.o. twice daily Will need hypercoagulable work-up, referral to hotel attendant Losartan increased from 50 to 75 mg p.o. daily Amlodipine 5 mg p.o. daily started Monitor blood pressure closely ACUTE PULMONARY EMBOLISM, BILATERAL CT angiogram chest initially ordered to rule out aortic dissection given chest tightness radiating to the back CT angiogram chest: 1. No evidence for an aortic dissection. 2. Nonocclusive right lower lobe segmental/subsegmental pulmonary emboli. 3. No focal lung consolidations. Discussed with laborer plumbing Dr. Shell, CT angiogram reviewed, left pulmonary embolism also noted Recommend full anticoagulation, discussed with patient, no previous history of major bleeding, heparin drip started Echocardiogram ordered Management per above DYSLIPIDEMIA Continue Crestor Disposition Anticipate discharge to home tomorrow if blood pressure remains well controlled plan of care discussed with patient in detail and at length all questions answered He is understanding, agreeable, comfortable with the plan of care Admission and Anticipated Discharge Date Admission Date: November 22, 2022 Subjective Follow-up for acute pulmonary embolism, hypertensive urgency, chest pain, etc. Seen resting in bed, comfortable, not in distress, very pleasant States he feels much better today overall Chest pain has resolved, no shortness of breath, dizziness, palpitations Reports mild frontal headache, nasal congestion, some drainage, no epistaxis No other symptoms Review of Systems Review of Systems: all noted and negative except for above Physical Exam Physical Exam: General- oriented x 3, not in distress, speaks in sentences with no effort or accessory muscle use Eyes- anicteric Neck- no JVD Lungs- clear breath sounds bilaterally, no rales/wheezes Heart- normal rate, regular rhythm; no murmurs Abdomen- normal bowel sounds, nondistended, soft, nontender Extremities-trace bilateral lower extremity edema, no calf tenderness Neuro- alert, oriented x 3; no gross focal neurologic deficits Skin- warm & dry Results & Data Results & Data ([facility]) Vital Signs (Past 12 Hours) Vital Signs Temp Pulse Resp BP Pulse Ox O2 Del Method 11/23/22 11:58 36.6 C 90 19 146/94 H 94 Room Air 11/23/22 07:25 37.0 C 92 H 18 160/80 H 95 Room Air 11/23/22 03:22 36.8 C 95 H 20 170/106 H 95 Room Air all noted and reviewed including below
[2022-11-23] MEDS ORDERED: CETIRIZINE HCL 10 MG TABLET PO ONE (14:15)
--- NOTE | 2022-11-23 22:44 | Electrocardiogram Report ---
Test Reason : Blood Pressure : / mmHG Vent. Rate : 071 BPM Atrial Rate : 071 BPM P-R Int : 142 ms QRS Dur : 084 ms QT Int : 388 ms P-R-T Axes : 049 -12 031 degrees QTc Int : 421 ms Normal sinus rhythm with sinus arrhythmia Possible Inferior infarct When compared with ECG of 06-APR-2020 11:06, Questionable change in QRS axis Confirmed by Otilio Leal ([id number]) on 11/23/2022 10:44:38 PM Referred By: Confirmed By:Otilio Leal
[2022-11-24] MEDS: hydrALAZINE HCL 20 MG/ML VIAL IV PRN (03:41)
--- NOTE | 2022-11-24 06:10 | Electrocardiogram Report ---
Test Reason : Blood Pressure : / mmHG Vent. Rate : 096 BPM Atrial Rate : 096 BPM P-R Int : 148 ms QRS Dur : 082 ms QT Int : 378 ms P-R-T Axes : 063 -15 033 degrees QTc Int : 477 ms Normal sinus rhythm Inferior infarct , age undetermined Abnormal ECG When compared with ECG of 22-NOV-2022 11:15, QT has lengthened Confirmed by Otilio Leal ([id number]) on 11/24/2022 6:10:26 AM Referred By: Rob Naranjo Confirmed By:Otilio Leal
[2022-11-24] MEDS: AMOXICILLIN/CLAVULANATE 875 MG TAB PO SCH (07:38)
[2022-11-24] MEDS: ASPIRIN 81 MG ECTAB PO SCH (07:38)
[2022-11-24] MEDS: APIXABAN 5 MG TABLET PO SCH (07:38)
[2022-11-24] MEDS: amLODIPine BESYLATE 5 MG TAB PO SCH (07:38)
[2022-11-24 08:11] LABS: Partial Thromboplastin Time 28.2 Seconds (21.0-31.0)
[2022-11-24] MEDS ORDERED: LOSARTAN POTASSIUM 50 MG TAB PO SCH (09:00)
[2022-11-24] MEDS ORDERED: CETIRIZINE HCL 10 MG TABLET PO SCH (09:00)
--- NOTE | 2022-11-24 13:18 | Hospitalist Progress Note ---
Date of Service November 24, 2022 Assessment & Plan (1) Hypertensive urgency: (2) Chest pain: (3) Acute pulmonary embolism: Plan: Mr. Saeed Lal is a 62-year-old male with history of hypertension, dyslipidemia, rhinitis, Phlebitis of the right lower extremity, venous insufficiency, prostate cancer, presenting with chest tightness radiating to the back, dizziness this morning. CHEST PAIN, ACUTE CORONARY SYNDROME RULED OUT HYPERTENSIVE URGENCY Troponin x 3 negative EKG no signs of acute ischemia Echocardiogram: no signs of wall motion abnormality mild concentric LVH Dag Coater consulted Losartan increased to 100mg po daily Norvasc 5mg po daily added monitor BP consider HCTZ if still uncontrolled ACUTE PULMONARY EMBOLISM, BILATERAL CT angiogram chest initially ordered to rule out aortic dissection given chest tightness radiating to the back CT angiogram chest: 1. No evidence for an aortic dissection. 2. Nonocclusive right lower lobe segmental/subsegmental pulmonary emboli. 3. No focal lung consolidations. Discussed with supervisor meter repair shop Dr. Shell, CT angiogram reviewed, left pulmonary embolism also noted Recommend full anticoagulation, discussed with patient, no previous history of major bleeding, heparin drip started Echo: no R heart strain Transitioned from heparin drip to Eliquis 10 mg p.o. twice daily x7 days, then 5 mg p.o. twice daily prothrombin gene mutation pending Will need full hypercoagulable work-up, referral to poolroom/poolhall manager SINUSITIS Augmentin BID and Zyrtec improving outpatient ff up DYSLIPIDEMIA Continue Crestor Disposition discharge to home PCP ff up refer to Golf Manager plan of care discussed with patient in detail and at length all questions answered He is understanding, agreeable, comfortable with the plan of care Admission and Anticipated Discharge Date Admission Date: November 22, 2022 Subjective ff up for acute PE, HTN, etc seen resting in bed, comfortable states he feels better overall no chest pain, dyspnea, palpitations, dizziness no other symptoms states he is ready and would like to be discharged today Review of Systems Review of Systems: all noted and negative except for above Physical Exam Physical Exam: General- oriented x 3, not in distress, speaks in sentences with no effort or accessory muscle use Eyes- anicteric Neck- no JVD Lungs- clear BS bilaterally, no rales/wheezes Heart- normal rate, regular rhythm; no murmurs Abdomen- normal bowel sounds, nondistended, soft, nontender Extremities- no pretibial edema, no calf tenderness Neuro- alert, oriented x 3; no gross focal neurologic deficits Skin- warm & dry Results & Data Results & Data ([facility]) Vital Signs (Past 12 Hours) Vital Signs Temp Pulse Resp BP BP Pulse Ox O2 Del Method 11/24/22 13:02 36.8 C 94 H 18 163/87 H 143/89 H 93 11/24/22 11:16 36.8 C 94 H 18 143/89 H 93 Room Air 11/24/22 06:55 36.5 C 88 18 139/83 92 Room Air 11/24/22 03:38 36.8 C 93 H 14 163/87 H 96 Room Air all noted and reviewed including below
--- NOTE | 2022-11-24 13:29 | Discharge Summary ---
Discharge Summary Date of Service November 24, 2022 Notes For Next Care Provider ff up Prothrombin gene test result Please refer to [employer] Medication Changes From Visit Eliquis 10 mg twice a day x6 days, then 5 mg twice a day indefinitely Amlodipine 5 mg daily Increase losartan from 50 mg to 100 mg daily. Augmentin Zyrtec Admission HPI Per Admitting Provider Mr. Saeed Lla is a 62-year-old male with history of hypertension, dyslipidemia, rhinitis, Phlebitis of the right lower extremity, venous insufficiency, prostate cancer, presenting with chest tightness radiating to the back, dizziness this morning. Patient reports that his blood pressure is usually under good control based on home monitoring. For the past week, patient has had worsening of nasal drainage, for which she has been using previously prescribed nasal decongestants. For the past 2 days, patient has had elevated blood pressure measurements at home, up to systolic 180s. This morning, patient took his usual losartan 20 mg p.o., but subsequent blood pressure readings was up to systolic 190s, even up to 200s. He was having chest tightness, radiating to the back-in between his shoulder blades, dizziness, blurring of vision, throbbing headache, and buzzing in his ears. Patient called 911, was given 4 aspirin doses and sublingual nitro which relieved the patient's chest tightness. Upon arrival to the ER, the patient's blood pressure was 209/114. EKG: No signs of acute ischemia or infarct. Troponin negative Chest x-ray: Subsegmental atelectasis Patient was placed on Nitropaste, blood pressure subsequently improved to systolic 160s. On exam, patient seen sitting up in bed, comfortable, not in distress, very pleasant. States chest tightness radiating to the back has resolved. Denies active shortness of breath, nausea or vomiting, palpitations. He reports mild frontal headache. No fevers or chills, neck pain, abdominal pain, nausea or vomiting, problems with urination or bowel movement. No other symptoms. Admission Exam Per Admitting Provider General- oriented x 3, not in distress, speaks in sentences with no effort or accessory muscle use Head- atraumatic Eyes- PERRL, EOMI, anicteric ENT- Positive mild frontal sinus tenderness, maxillary sinus tenderness Positive dry nasal mucosa, with some erythema and excoriation oropharynx clear Neck- supple, no JVD, no adenopathy, no thyromegaly; carotids +2/2, no bruits appreciated Lungs- clear to auscultation bilaterally, no rales/wheezes Heart- normal rate, regular rhythm; no murmur, no gallop, no rub appreciated No tenderness on the chest wall Abdomen- normal bowel sounds, nondistended, soft, nontender, no masses or hepatosplenomegaly Extremities-trace pretibial edema, no calf tenderness; peripheral pulses intact Neuro- alert, oriented x 3; CN 2-12 grossly intact; motor 5/5 bilaterally;sensation 100% on all extremities; no other gross focal neurologic deficits Skin- warm & dry Principal Dx & Hospital Course #1 = Principal Diagnosis (1) Hypertensive urgency: (2) Chest pain: (3) Acute pulmonary embolism: Mr. Saeed Lal is a 62-year-old male with history of hypertension, dyslipidemia, rhinitis, Phlebitis of the right lower extremity, venous insufficiency, prostate cancer, presenting with chest tightness radiating to the back, dizziness this morning. CHEST PAIN, ACUTE CORONARY SYNDROME RULED OUT HYPERTENSIVE URGENCY Troponin x 3 negative EKG no signs of acute ischemia Echocardiogram: no signs of wall motion abnormality mild concentric LVH Assessment Analyst consulted Losartan increased to 100mg po daily Norvasc 5mg po daily added monitor BP consider HCTZ if still uncontrolled ACUTE PULMONARY EMBOLISM, BILATERAL RIGHT POPLITEAL VEIN DVT CT angiogram chest initially ordered to rule out aortic dissection given chest tightness radiating to the back CT angiogram chest: 1. No evidence for an aortic dissection. 2. Nonocclusive right lower lobe segmental/subsegmental pulmonary embo li. 3. No focal lung consolidations. Venous Doppler: Deep venous thrombus within the right popliteal vein and an adjacent smaller draining vein. Discussed with programming manager Dr. Shell, CT angiogram reviewed, left pulmonary embolism also noted Recommend full anticoagulation, discussed with patient, no previous history of major bleeding, heparin drip started Echo: no R heart strain Transitioned from heparin drip to Eliquis 10 mg p.o. twice daily x7 days, then 5 mg p.o. 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 SINUSITIS Augmentin BID and Zyrtec improving outpatient ff up DYSLIPIDEMIA Continue Crestor Disposition discharge to home PCP ff up refer to [employer] plan of care discussed with patient in detail and at length all questions answered He is understanding, agreeable, comfortable with the plan of care Discharge Exam General- oriented x 3, not in distress, speaks in sentences with no effort or accessory muscle use Eyes- anicteric Neck- no JVD Lungs- clear BS bilaterally, no rales/wheezes Heart- normal rate, regular rhythm; no murmurs Abdomen- normal bowel sounds, nondistended, soft, nontender Extremities- no pretibial edema, no calf tenderness Neuro- alert, oriented x 3; no gross focal neurologic deficits Skin- warm & dry Updated Medication List Medication Instructions Recorded Confirmed Type 3-in-1 Commode #1 ea 04/05/20 10/07/22 Rx Wheeled Walker #1 ea 04/05/20 10/07/22 Rx rosuvastatin 10 mg tablet 10 mg PO QAM 11/22/22 11/22/22 History amlodipine 5 mg tablet (Norvasc) 5 mg PO QAM 30 days #30 tabs 11/24/22 Rx amoxicillin 875 mg-potassium 1 tab PO BIDM 5 days #10 tabs 11/24/22 Rx clavulanate 125 mg tablet apixaban 5 mg tablet (Eliquis) 5 mg PO BID #60 tabs 11/24/22 Rx cetirizine 10 mg tablet 10 mg PO QAM 14 days #14 tabs 11/24/22 Rx losartan 50 mg tablet 100 mg PO QAM 30 days #60 tabs 11/24/22 Rx Hospital Stay Data Consultations 11/22/22 12:49 ED Decision to Admit Stat 11/22/22 19:45 Consult Cardiology Routine 11/23/22 07:57 Consult Pulmonology Routine Diagnostic Imagining Performed 11/22/22 11:35 CT head/brain wo con Stat TECHNIQUE: Multiaxial CT images of the head were performed without the use of intravenous contrast. Automated exposure control was utilized for this study. A dose lowering technique was utilized adhering to the principles of ALARA. Comparison: Head CT 04/10/2013. Findings: The paranasal sinuses and mastoid air cells are clear. The calvarium and skull base are intact. The ventricles and sulci are within normal limits. There is no mass, hematoma, midline shift, or acute infarct. The orbits are unremarkable. Impression: No acute intracranial abnormality. ACT 112: Negative or not required by law. 11/22/22 16:09 CT angio chest dissection wo/w con Stat CHEST CTA for AORTIC DISSECTION CT DOSE: 1414.04 mGycm HISTORY: chest pain, radiating to the back TECHNIQUE: Multiaxial CT images of the chest were performed both before and after the intravenous administration of contrast to evaluate the aorta. Maximal intensity projection images were also obtained. A dose lowering technique was utilized adhering to the principles of ALARA. COMPARISON STUDY: None. FINDINGS: Noncontrast imaging through the chest shows no evidence for an intramural hematoma within the thoracic aorta. Mild calcified plaque within the coronary arteries and aortic valve. Normal caliber thoracic aorta with no evidence for a dissection. Nonocclusive filling defect seen within the right lower lobe segmental/subsegmental pulmonary arteries best in image 142. This is consistent with a pulmonary embolus. Limited views the upper abdomen demonstrate normal liver, spleen, and adrenal glands. Normal esophagus. No mediastinal or hilar lymphadenopathy. No pleural or pericardial effusions. The thyroid gland enhances normally. No acute fractures within the chest. No pneumothorax. The central airways are patent. No focal lung consolidations to suggest a pneumonia. IMPRESSION: 1. No evidence for an aortic dissection. 2. Nonocclusive right lower lobe segmental/subsegmental pulmonary emboli. 3. No focal lung consolidations. ACT 112: Negative or not required by law. Electronically signed by: Rivas Paul M.D. 11/22/2022 5:11 PM 11/23/22 US venous doppler LE BI Routine COMPARISON STUDY: No previous studies for comparison. TECHNIQUE: Sonography of the deep venous system of the bilateral lower extremities was performed. Compression and augmentation were evaluated. FINDINGS: There is no deep venous thrombus within the right common femoral or superficial femoral veins. Note is made of deep venous thrombus within the right popliteal vein. There is an additional focus of venous thrombus within a smaller vein draining into the right popliteal vein. There is no deep venous thrombus within the left lower extremity. IMPRESSION: Deep venous thrombus within the right popliteal vein and an adjacent smaller draining vein. ACT 112: Negative or not required by law. Electronically signed by: Kirby Yañez M.D. 11/23/2022 10:25 AM Pending Results Patient Have Any Pending Studies at Discharge: No Discharge Instructions Given to Patient (Per Discharging Provider) PLEASE REFER TO YOUR NEW MEDICATION LIST AND FOLLOW INSTRUCTIONS CAREFULLY. YOUR NEW MEDICATIONS INCLUDE: Eliquis 10 mg twice a day x6 days, then 5 mg twice a day indefinitely -Blood thinner for acute pulmonary embolism/blood clot in the lungs Amlodipine 5 mg daily -Blood pressure medication Increase losartan from 50 mg to 100 mg daily. Augmentin - antibiotic for sinusitis Zyrtec - antihistamine for sinusitis PLEASE CALL YOUR PRIMARY CARE PHYSICIAN OR RETURN TO THE ER IF WITH WORSENING OF SYMPTOMS, INCLUDING Chest pain, shortness of breath, dizziness, weakness, bleeding, etc. Return to the ER immediately for evaluation if you experience any head trauma, even if you have no symptoms. FOLLOW UP WITH PRIMARY CARE PHYSICIAN OUTLINED ABOVE. Total Time Total Time Spent Total Time Spent (In Minutes): > 30 minutes
--- NOTE | 2022-11-25 06:02 | Electrocardiogram Report ---
Test Reason : Blood Pressure : / mmHG Vent. Rate : 087 BPM Atrial Rate : 087 BPM P-R Int : 150 ms QRS Dur : 086 ms QT Int : 384 ms P-R-T Axes : 061 -07 047 degrees QTc Int : 462 ms Normal sinus rhythm Possible Inferior infarct (cited on or before 10-APR-2013) Abnormal ECG When compared with ECG of 23-NOV-2022 05:18, No significant change was found Confirmed by Otilio Leal ([id number]) on 11/25/2022 6:02:22 AM Referred By: Rob Naranjo Confirmed By:Otilio Leal
== END 2022-11-24 13:53 | disposition home or self-care (01) | DRG 299 ==
LOC: 2S 11:12 → ED 11:12 → 2S 19:37